=== PATIENT | male | born 1935 | race African-American/Black ===

== ENCOUNTER 2019-07-20 20:45 | Inpatient (IN) ==
[2019-07-20] MEDS ORDERED: *HR* FentaNYL (PF) 100 MCG/2 ML VIAL IVP ONE ×2 (21:20→23:14)
[2019-07-20 21:56] LABS: Basophils % 0.9 %; Immature Granulocytes % 0.4 % (0-4); Red Cell Distribution Width 13.9 % (11.5-14.5)
[2019-07-20 21:57] LABS: Basophils # 0.1 K/mcL (0.0-0.2); Eosinophils # 0.2 K/mcL (0.0-0.6); Eosinophils % 4.5 %; Hematocrit 35.5 % (37.5-50.1); Hemoglobin 12.5 g/dL (12.9-16.9); Immature Platelets 2.6 % (1.1-6.1); Lymphocytes # 0.6 K/mcL (0.6-4.6); Lymphocytes % 10.5 %; Mean Corpuscular HGB Conc 35.2 g/dL (31.6-35.5); Mean Corpuscular Volume 88.1 fL (83.0-100.0); Mean Platelet Volume 9.6 fL (9.4-12.4); Monocytes # 0.4 K/mcL (0.0-1.3); Monocytes % 7.5 %; Red Blood Count 4.03 M/mcL (4.19-5.50); Segmented Neutrophils % 76.2 %; White Blood Count 5.3 K/mcL (4.3-11.1)
[2019-07-20 22:01] LABS: INR 1.1; Prothrombin Time 12.7 Seconds (9.4-12.1)
[2019-07-20 22:02] LABS: Platelet Count 87 K/mcL (140-400)
[2019-07-20 22:18] LABS: Platelet Estimate Decreased (Normal)
[2019-07-20 22:19] LABS: Alanine Aminotransferase 25 Units/L (7-52); Albumin 2.9 g/dL (3.5-5.7); Alkaline Phosphatase 235 Units/L (34-104); Aspartate Amino Transferase 32 Units/L (13-39); BUN/Creatinine Ratio 22 (6-26); Bilirubin,Direct 1.1 mg/dL (0.0-0.2); Bilirubin,Total 3.1 mg/dL (0.3-1.0); Blood Urea Nitrogen 21 mg/dL (8-23); Calcium 7.9 mg/dL (8.6-10.3); Carbon Dioxide 24 mEq/L (23-29); Chloride 98 mEq/L (98-107); Glucose 94 mg/dL (70-105); Osmolality,Calculated 275 (280-300); Potassium 3.7 mEq/L (3.5-5.1); Sodium 131 mEq/L (136-145); eGFR For African Americans > 60 (> 60); eGFR For Non-African Americans > 60 (> 60)
[2019-07-20] MEDS ORDERED: Lactulose Oral Soln 20 GM/30 ML UDC PO ONE (22:28)
[2019-07-20 22:30] LABS: Thyroid Stimulating Hormone 0.988 mcIU/mL (0.340-5.600)
[2019-07-20 22:51] LABS: Bilirubin,Urine Small (Negative); Blood,Urine Negative (Negative); Clarity,Urine Cloudy (Clear); Color,Urine Dark Yellow (Yellow); Glucose,Urine (UA) Normal (Normal); Ketones,Urine Trace mg/dL (Negative); Leukocyte Esterase,Urine Trace (Negative); Nitrite,Urine Negative (Negative); PH,Urine 7.5 pH Units (5.0-8.0); Protein,Urine Negative (Neg-Trace); Specific Gravity,Urine 1.021 (1.010-1.025)
[2019-07-20 22:52] LABS: Bacteria,Urine None Seen per hpf (None-Few); Hyaline Casts,Urine None Seen per lpf (None-Few); Squamous Epithelial Cell,Urine Many per lpf (None-Few); WBC,Urine 0-3 per hpf (0-3)
[2019-07-20 23:03] LABS: Albumin/Globulin Ratio 1.1 (1.1-2.2); Globulin 2.7 g/dL (2.4-3.5); Total Protein 5.6 g/dL (6.4-8.9)
[2019-07-20] MEDS: Calcium Gluconate 1gm/50mL 1 GM/50 ML BAG IVPB SCH (23:44)
[2019-07-21] MEDS ORDERED: Lactulose Oral Soln 20 GM/30 ML UDC PO ONE (01:30)
[2019-07-21] MEDS ORDERED: Dextrose Gel 15 GM/37.5 ML TUBE PO PRN ×2 (01:58)
[2019-07-21] MEDS ORDERED: D5% in Water 1,000 ML IVC PRN (01:58)
[2019-07-21] MEDS ORDERED: *HR* Dextrose 50 % in Water (Syg) 50 ML SYRINGE IVP PRN (01:58)
[2019-07-21] MEDS ORDERED: Acetaminophen 325 MG TABLET PO PRN (02:02)
[2019-07-21] MEDS ORDERED: Naloxone 0.4 MG/ML INJ IVP PRN (02:02)
[2019-07-21] MEDS ORDERED: Ondansetron 4 MG/2 ML VIAL IVP PRN (02:02)
[2019-07-21] MEDS ORDERED: Acetaminophen IV 1,000 MG/100 ML INFUS..BTL IVPB ONE (02:09)
[2019-07-21] MEDS: Calcium Gluconate 1gm/50mL 1 GM/50 ML BAG IVPB SCH (03:29)
[2019-07-21] MEDS: traMADol 50 MG TABLET PO PRN (05:37)
[2019-07-21] MEDS ORDERED: Insulin LISPRO 300 UNITS/3 ML VIAL SQ SCH (06:00)
[2019-07-21] MEDS: Insulin LISPRO 300 UNITS/3 ML VIAL SQ SCH ×4 (08:04→20:54)
[2019-07-21] MEDS ORDERED: Perflutren Lipid Microsphere 1.3 ML in 0.9 % Sodium Chloride 8.7 ML IVP ONE (09:42)
[2019-07-21 11:10] LABS: Hematocrit 35.3 % (37.5-50.1); Red Cell Distribution Width 14.1 % (11.5-14.5)
[2019-07-21 11:12] LABS: Hemoglobin 12.1 g/dL (12.9-16.9); Immature Platelets 3.1 % (1.1-6.1); Mean Corpuscular HGB Conc 34.3 g/dL (31.6-35.5); Mean Corpuscular Hemoglobin 30.6 pg (28.0-33.3); Mean Corpuscular Volume 89.4 fL (83.0-100.0); Mean Platelet Volume 9.4 fL (9.4-12.4); Red Blood Count 3.95 M/mcL (4.19-5.50)
[2019-07-21 12:04] LABS: % Iron Saturation 13 % (20-55); BUN/Creatinine Ratio 21 (6-26); Blood Urea Nitrogen 19 mg/dL (8-23); Carbon Dioxide 25 mEq/L (23-29); Chloride 98 mEq/L (98-107); Chol/HDL Ratio 2.8 (0-4.9); Cholesterol 138 mg/dL (< 200); Glucose 126 mg/dL (70-105); HDL Cholesterol 50 mg/dL (40-59); Iron 28 mcg/dL (65-175); LDL Cholesterol,Calculated 71 mg/dL (0-99); Osmolality,Calculated 276 (280-300); Phosphorous 2.1 mg/dL (2.7-4.5); Potassium 3.9 mEq/L (3.5-5.1); Sodium 131 mEq/L (136-145); Transferrin 149 mg/dL (203-362); Triglycerides 86 mg/dL (< 150); eGFR For African Americans > 60 (> 60); eGFR For Non-African Americans > 60 (> 60)
[2019-07-21 12:38] LABS: Estimated Average Glucose 140 mg/dl
[2019-07-21] MEDS ORDERED: NON-FORMULARY MEDICATION 1 EACH EACH (Potassium Chloride [Klor-Con 10] 10 MEQ) PO SCH (14:15)
[2019-07-21] MEDS: Aspirin Enteric Coated 81 MG Tablet PO SCH (14:53)
[2019-07-21] MEDS: Spironolactone 25 MG TABLET PO SCH ×2 (14:53→20:54)
[2019-07-21] MEDS: Furosemide 40 MG TABLET PO SCH (14:53)
[2019-07-21] MEDS: Hydrocortisone 10 MG TABLET PO SCH (20:54)
[2019-07-22 01:40] LABS: Hematocrit 35.2 % (37.5-50.1); Hemoglobin 11.8 g/dL (12.9-16.9); Immature Platelets 3.1 % (1.1-6.1); Mean Corpuscular HGB Conc 33.5 g/dL (31.6-35.5); Mean Corpuscular Hemoglobin 30.6 pg (28.0-33.3); Mean Corpuscular Volume 91.2 fL (83.0-100.0); Red Blood Count 3.86 M/mcL (4.19-5.50); Red Cell Distribution Width 14.2 % (11.5-14.5)
[2019-07-22 01:54] LABS: BUN/Creatinine Ratio 23 (6-26); Blood Urea Nitrogen 19 mg/dL (8-23); Calcium 7.7 mg/dL (8.6-10.3); Carbon Dioxide 22 mEq/L (23-29); Chloride 98 mEq/L (98-107); Glucose 127 mg/dL (70-105); Osmolality,Calculated 274 (280-300); Potassium 4.2 mEq/L (3.5-5.1); Sodium 130 mEq/L (136-145); eGFR For African Americans > 60 (> 60); eGFR For Non-African Americans > 60 (> 60)
[2019-07-22] MEDS: Spironolactone 25 MG TABLET PO SCH ×2 (07:52→20:22)
[2019-07-22] MEDS: Hydrocortisone 10 MG TABLET PO SCH ×2 (07:52→17:46)
[2019-07-22] MEDS: Aspirin Enteric Coated 81 MG Tablet PO SCH (07:52)
[2019-07-22] MEDS: Furosemide 40 MG TABLET PO SCH (07:53)
[2019-07-22] MEDS: Insulin LISPRO 300 UNITS/3 ML VIAL SQ SCH ×4 (07:58→20:22)
[2019-07-22] MEDS ORDERED: 0.9 % Sodium Chloride 500 ML IVC ONE (19:43)
[2019-07-23] MEDS: traMADol 50 MG TABLET PO PRN ×2 (02:11→09:55)
[2019-07-23 04:08] LABS: Hematocrit 31.1 % (37.5-50.1); Mean Corpuscular Hemoglobin 30.7 pg (28.0-33.3)
[2019-07-23 04:10] LABS: Hemoglobin 10.8 g/dL (12.9-16.9); Immature Platelets 2.5 % (1.1-6.1); Mean Corpuscular HGB Conc 34.7 g/dL (31.6-35.5); Mean Corpuscular Volume 88.4 fL (83.0-100.0); Mean Platelet Volume 9.8 fL (9.4-12.4); Red Blood Count 3.52 M/mcL (4.19-5.50); White Blood Count 4.2 K/mcL (4.3-11.1)
[2019-07-23 04:29] LABS: BUN/Creatinine Ratio 31 (6-26); Blood Urea Nitrogen 23 mg/dL (8-23); Calcium 7.1 mg/dL (8.6-10.3); Carbon Dioxide 20 mEq/L (23-29); Chloride 100 mEq/L (98-107); Glucose 107 mg/dL (70-105); Osmolality,Calculated 270 (280-300); Potassium 4.4 mEq/L (3.5-5.1); Sodium 128 mEq/L (136-145); eGFR For African Americans > 60 (> 60); eGFR For Non-African Americans > 60 (> 60)
[2019-07-23] MEDS: Insulin LISPRO 300 UNITS/3 ML VIAL SQ SCH ×4 (08:02→21:52)
[2019-07-23] MEDS: Spironolactone 25 MG TABLET PO SCH (09:45)
[2019-07-23] MEDS: Aspirin Enteric Coated 81 MG Tablet PO SCH (09:52)
[2019-07-23] MEDS: Furosemide 40 MG TABLET PO SCH (09:52)
[2019-07-23] MEDS: Hydrocortisone 10 MG TABLET PO SCH ×2 (09:52→18:36)
[2019-07-23] MEDS ORDERED: Ringers Solution, Lactated 500 ML IVC ONE (14:53)
[2019-07-24 06:01] LABS: Basophils % 0.5 %; Eosinophils # 0.2 K/mcL (0.0-0.6); Hematocrit 31.4 % (37.5-50.1); Hemoglobin 10.6 g/dL (12.9-16.9); Immature Granulocytes % 0.3 % (0-4); Lymphocytes # 0.6 K/mcL (0.6-4.6); Lymphocytes % 14.9 %; Mean Corpuscular HGB Conc 33.8 g/dL (31.6-35.5); Mean Corpuscular Hemoglobin 30.2 pg (28.0-33.3); Mean Corpuscular Volume 89.5 fL (83.0-100.0); Mean Platelet Volume 9.6 fL (9.4-12.4); Monocytes # 0.3 K/mcL (0.0-1.3); Monocytes % 7.7 %; Neutrophils # 2.7 K/mcL (1.6-8.9); Platelet Count 107 K/mcL (140-400); Red Blood Count 3.51 M/mcL (4.19-5.50); Red Cell Distribution Width 14.2 % (11.5-14.5); Segmented Neutrophils % 71.6 %; White Blood Count 3.8 K/mcL (4.3-11.1)
[2019-07-24 06:22] LABS: BUN/Creatinine Ratio 29 (6-26); Blood Urea Nitrogen 25 mg/dL (8-23); Calcium 7.3 mg/dL (8.6-10.3); Carbon Dioxide 24 mEq/L (23-29); Chloride 99 mEq/L (98-107); Glucose 113 mg/dL (70-105); Osmolality,Calculated 277 (280-300); Potassium 4.2 mEq/L (3.5-5.1); Sodium 131 mEq/L (136-145); eGFR For African Americans > 60 (> 60); eGFR For Non-African Americans > 60 (> 60)
[2019-07-24] MEDS: Insulin LISPRO 300 UNITS/3 ML VIAL SQ SCH ×2 (08:43→12:22)
[2019-07-24] MEDS: Hydrocortisone 10 MG TABLET PO SCH (08:46)
[2019-07-24] MEDS: Aspirin Enteric Coated 81 MG Tablet PO SCH (08:47)
[2019-07-24 15:47] VITALS: BP 91/58
== END 2019-07-24 17:45 | DRG 536 ==
LOC: EMEROOARM 20:45 → 3NENU 20:45 → SUATTDRO 07-21 02:02
PROVIDERS: ADMIT Internal Medicine; ATTEND Internal Medicine